=== PATIENT | male | born 1945 | race Caucasian/White ===

== ENCOUNTER 2019-11-06 01:03 | Outpatient (CLI) | payer OTHER, SELFPAY ==
[2019-11-06 19:35] LABS: SARS-CoV-2 RNA PCR Negative
== END 2019-11-06 01:04 | disposition home or self-care (01) ==
LOC: ANHCOVIDDT 01:03
PROVIDERS: PCP Internal Medicine; Visit Provider Internal Medicine Gastroenterology
DX: Z01.812 Encounter for preprocedural laboratory examination (principal); Z11.59 Encounter for screening for other viral diseases
CPT/HCPCS: 87635; C9803; U0003

== ENCOUNTER 2019-11-08 01:44 | Day surgery (SDC) | payer OTHER, SELFPAY ==
[2019-11-02 16:21] VITALS: BMI 26.0
[2019-11-08 08:52] VITALS: BP 145/88; PULSE 72; RESP 16; TEMP 36.1; O2SAT 97; BMI 25.0
[2019-11-08] MEDS: LACTATED RINGERS 1,000 ML 150 ML IV CONT (09:08)
--- NOTE | 2019-11-08 09:13 | PM.HPGS ---
History of Present Illness History of Present Illness Consent: Risks, benefits, and alternatives have been discussed and questions answered. Patient agrees to proceed with procedure. Chief complaint: hx of polyps Narrative: Sergei West is a 74 year old male [facility] Past Medical History Medical History (Updated 04/10/19 @ 09:40 by Obi Murrieta MD) Atrial fibrillation with controlled ventricular rate Benign essential HTN Chronic diastolic heart failure Coronary artery disease involving [place] coronary artery of [place] heart Dependent edema Diastolic dysfunction without heart failure THIBODEAUX (dyspnea on exertion) Dyslipidemia First degree atrioventricular block Heart valve disease History of bradycardia Mixed hyperlipidemia LIEN on CPAP Surgical History Surgical History H/O hernia repair Family History Family History (System 02/08/19 @ 13:05 by Rosa M Story) Father Family history of heart disease in male family member before age 55 Hypertension Mother Family history of alcoholism Family history of lung disease Social History Social History (System 02/08/19 @ 13:05 by Rosa M Story) Smoking status: Never smoker Alcohol intake: never Meds Home Medications and Allergies Home Medications Medication Instructions Recorded Confirmed Type azelastine 0.15 % (205.5 mcg) 2 spray NASAL BID #30 ml 02/09/19 11/02/19 Rx nasal spray cholecalciferol (vitamin D3) 125 5,000 unit PO DAILY 02/20/19 11/02/19 History mcg (5,000 unit) capsule finasteride 5 mg tablet 5 mg PO DAILY #90 tablet 06/01/19 11/02/19 Rx amlodipine 10 mg tablet 10 mg PO DAILY #30 tablet 06/26/19 11/02/19 Rx lisinopril 40 mg tablet 40 mg PO DAILY #30 tablet 07/12/19 11/02/19 Rx rivaroxaban 20 mg tablet See Rx Instructions .ROUTE 08/08/19 11/02/19 Rx .COMPLEX #90 tablet metoprolol succinate 25 mg 25 mg PO DAILY #90 tablet 10/15/19 11/02/19 Rx tablet,extended release 24 hr allopurinol 200 mg PO DAILY 11/02/19 11/02/19 History simvastatin 20 mg tablet See Rx Instructions .ROUTE 11/05/19 11/08/19 Rx .COMPLEX #90 tablet Allergies Allergy/AdvReac Type Severity Reaction Status Date / Time No Known Allergies Allergy Mild Verified 11/08/19 08:51 Vital Signs Vital Signs - 24 hr 11/08/19 08:52 Temperature 36.1 C L Pulse Rate 72 Respiratory Rate 16 Blood Pressure 145/88 H Pulse Oximetry 97 Exam Const: Orientation/consciousness: patient oriented x3 Resp: Auscultation: clear to auscultation bilaterally Cardio: Rate: regular rate Rhythm: regular rhythm Heart sounds: no murmurs GI: GI Palp: Yes Soft to palpation, No Tenderness to palpation present (GI), Yes No hepatosplenomegaly present and No Palpable mass present Auscultation: normal bowel sounds Neuro: General: patient oriented x3 and no focal motor deficits Extrem: General: no pedal edema Assessment and Plan Additional Plan screening colonoscopy secondary history of colonic polyps last colonoscopy 7 years ago
--- NOTE | 2019-11-08 09:41 | P.PNAN_ITS ---
Anes - Initial Pre Proc Eval Procedure: Operation Date: 11/08/19 09:30 Proposed Procedures p Screening Colonoscopy - West Blanco MD Date/Time: 11/08/19 09:41 Surgeon: West Blanco MD Pre Op Diagnosis: hx of polyps Patient Data Age: 74 Gender: M Height: 5 ft 9 in Weight: 76.8 kg Last Vital Signs Temp 96.9 F L 11/08/19 08:52 Pulse 72 11/08/19 08:52 Resp 16 11/08/19 08:52 BP 145/88 H 11/08/19 08:52 Pulse Ox 97 11/08/19 08:52 Allergies Allergy/AdvReac Type Severity Reaction Status Date / Time No Known Allergies Allergy Mild Verified 11/08/19 08:51 Home Medications Medication Instructions Recorded Confirmed Type azelastine 0.15 % (205.5 mcg) 2 spray NASAL BID #30 ml 02/09/19 11/02/19 Rx nasal spray cholecalciferol (vitamin D3) 125 5,000 unit PO DAILY 02/20/19 11/02/19 History mcg (5,000 unit) capsule finasteride 5 mg tablet 5 mg PO DAILY #90 tablet 06/01/19 11/02/19 Rx amlodipine 10 mg tablet 10 mg PO DAILY #30 tablet 06/26/19 11/02/19 Rx lisinopril 40 mg tablet 40 mg PO DAILY #30 tablet 07/12/19 11/02/19 Rx rivaroxaban 20 mg tablet See Rx Instructions .ROUTE 08/08/19 11/02/19 Rx .COMPLEX #90 tablet metoprolol succinate 25 mg 25 mg PO DAILY #90 tablet 10/15/19 11/02/19 Rx tablet,extended release 24 hr allopurinol 200 mg PO DAILY 11/02/19 11/02/19 History simvastatin 20 mg tablet See Rx Instructions .ROUTE 11/05/19 11/08/19 Rx .COMPLEX #90 tablet Patient hx anesthesia problems: none Family hx anesthesia problems: none PMFSH Past Medical History Medical History (Updated 04/10/19 @ 09:40 by Obi Murrieta MD) Atrial fibrillation with controlled ventricular rate Benign essential HTN Chronic diastolic heart failure Coronary artery disease involving [place] coronary artery of [place] heart Dependent edema Diastolic dysfunction without heart failure THIBODEAUX (dyspnea on exertion) Dyslipidemia First degree atrioventricular block Heart valve disease History of bradycardia Mixed hyperlipidemia LIEN on CPAP Surgical History Surgical History H/O hernia repair Family History Family History (System 02/08/19 @ 13:05 by Rosa M Story) Father Family history of heart disease in male family member before age 55 Hypertension Mother Family history of alcoholism Family history of lung disease Social History Social History (System 02/08/19 @ 13:05 by Rosa M Story) Smoking status: Never smoker Alcohol intake: never Anes - Eval Final PreProcedure Day of Procedure 11/08/19 09:41 Patient weight: normal Heart: regular rate and rhythm Lungs: clear to auscultation Airway: Mallampati scale class II Neurological: alert and oriented Last oral intake: >/= 8 hours ASA classification: III Emergent: no Anesthetic plan: proceed Anesthesia type and monitoring: general GIVS and standard monitoring Informed Consent: The patient's anesthetic plan and its attendant risks and benefits were discussed with the patient/family/POA. Questions were solicited and answers provided to the satisfaction of the patient/family/POA.
[2019-11-08] MEDS: SIMETHICONE ORAL SUSPENSION 20 MG/0.3 ML 30 ML BOTTLE 0.6 ML IRRIGATION (10:09)
[2019-11-08 10:16] VITALS: BP 107/72; PULSE 86; RESP 16; O2SAT 95
== END 2019-11-08 10:54 | disposition home or self-care (01) ==
PROVIDERS: PCP Internal Medicine; Visit Provider Internal Medicine Gastroenterology
PROC: 0DJD8ZZ Inspection of Lower Intestinal Tract, Via Natural or Artificial Opening Endoscopic (ICD-10-PCS; CPT 45378; principal; 2019-11-08 09:30)
DX: Z12.11 Encounter for screening for malignant neoplasm of colon (principal); K57.30 Diverticulosis of large intestine without perforation or abscess without bleeding; K64.1 Second degree hemorrhoids; Z86.010 Personal history of colon polyps; I48.91 Unspecified atrial fibrillation; I11.0 Hypertensive heart disease with heart failure; I50.32 Chronic diastolic (congestive) heart failure; I25.10 Atherosclerotic heart disease of native coronary artery without angina pectoris; I44.0 Atrioventricular block, first degree; E78.2 Mixed hyperlipidemia; G47.33 Obstructive sleep apnea (adult) (pediatric); Z79.01 Long term (current) use of anticoagulants
CPT/HCPCS: G0105; J2704; J7120

== ENCOUNTER 2021-05-02 02:07 | Emergency (ER) | payer OTHER, SELFPAY ==
--- NOTE | ~2021-05-02 | XR_ITS ---
EXAMINATION: XR femur RT min 2V DATE: 05/02/2021 08:03 INDICATION: Right thigh pain. TECHNIQUE: 2 views of right femur on 4 radiographs were obtained. COMPARISON: None. FINDINGS: Bone alignment is normal. No fracture. There is mild right knee and hip osteoarthritis. The re is a large knee joint effusion. Surgical clips overlie the pelvis. IMPRESSION: 1. Mild polyarticular osteoarthritis. 2. Large right knee joint effusion. Reviewed, dictated and finalized at location A. H CORRECTIONS OFFICER
--- NOTE | ~2021-05-02 | XR_ITS ---
EXAMINATION: XR knee RT min 4V DATE: 05/02/2021 08:03 INDICATION: Right knee pain. TECHNIQUE: 4 views of right knee were obtained. COMPARISON: None. FINDINGS: Bone alignment is normal. No fracture. There is mild tricompartmental osteoarthritis charac terized by tiny osteophytes. No joint space narrowing. There is a large knee joint effusion. IMPRESSION: 1. Mild right knee osteoarthritis. 2. Large right knee joint effusion. Reviewed, dictated and finalized at location A. ROBE STYLIST
--- NOTE | ~2021-05-02 | US_ITS ---
EXAMINATION: US venous doppler LE RT DATE: 05/02/2021 08:11 INDICATION: Right lower limb pain. TECHNIQUE: Grayscale ultrasound images without and with compression and Doppler ultrasound images of the right lower extremity veins were obtained. COMPARISON: None. FINDINGS: The visualized portions of right common femoral vein, profunda (deep) femoral vein, femoral vein, pop liteal vein, peroneal veins, posterior tibial veins, and greater saphenous vein outflow are patent. IMPRESSION: 1. No deep venous thrombosis. Reviewed, dictated and finalized at location A. GLASS TECHNICIAN
[2021-05-02 03:04] VITALS: BP 130/83; PULSE 66; RESP 18; TEMP 36.5; O2SAT 99
[2021-05-02 06:22] VITALS: BP 149/105; PULSE 88; RESP 17; O2SAT 97
--- NOTE | 2021-05-02 08:07 | ED.LOWEXIN ---
HPI - Extremity Injury (Lower) General Chief Complaint: Extremity Injury, Lower Stated Complaint: Right knee pain/swelling Time Seen by Provider: 05/02/21 07:05 Source: patient, RN notes reviewed and old records reviewed Mode of arrival: ambulatory Limitations: no limitations History of Present Illness HPI Narrative: This is a 75 year old male who presents for evaluation of right leg pain. He noticed pain to right thigh just above his right knee at at 830 last night. He noticed this pain when he attempted to get up from his chair. He reports he was unable to bear weight due to pain. He has not taken anything for pain. He denies any injury. He takes Xarelto for atrial fibrillation and gout. He denies numbness, tingling or weakness. Related Data Home Medications Medication Instructions Recorded Confirmed cholecalciferol (vitamin D3) 125 5,000 unit PO DAILY 02/20/19 04/16/21 mcg (5,000 unit) capsule Allergies Allergy/AdvReac Type Severity Reaction Status Date / Time No Known Allergies Allergy Mild Verified 05/02/21 03:07 Review of Systems Review of Systems: All systems reviewed & are unremarkable except as noted in HPI and below PMFSH Past Medical History Medical History (Updated 05/02/21 @ 09:09 by Karishma Shane MD) Atrial fibrillation with controlled ventricular rate Benign essential HTN Chronic diastolic heart failure Coronary artery disease involving [place] coronary artery of [place] heart Dependent edema Diastolic dysfunction without heart failure THIBODEAUX (dyspnea on exertion) Dyslipidemia First degree atrioventricular block Heart valve disease History of bradycardia Mixed hyperlipidemia LIEN on CPAP Surgical History Surgical History H/O hernia repair Family History Family History Father Family history of heart disease in male family member before age 55 Hypertension Mother Family history of alcoholism Family history of lung disease Social History Social History Smoking status: Never smoker Alcohol intake: never Substance use: never Exam Const: General: no acute distress and alert Orientation/consciousness: patient oriented x3 HENMT: Head: normocephalic and atraumatic Eyes: EOM: EOMs intact bilaterally Resp: Effort & Inspection: normal respiratory effort Skin: General skin exam: normal color Rashes: no rashes Neuro: General: patient oriented x3, moves all extremities and CN's II-XI intact bilaterally Extrem: Other: no significant swelling or right leg, there is no redness or increased warmth to joint. He is unable to flex at knee due to pain Psych: Mental Status: mental status grossly normal Affect: normal affect Course Reevaluation(s) Reevaluation #1: I Discussed with patient that xray shows knee effusion. I looked at knee with US and I do not appreciated effusion amendable to arthrocentesis. There is appears to be debris may clots. I discussed with patient discharge plan of ICE , rest immobilization and pain medication. If symptoms do not improve he can follow up with his orthopedic surgeon Dr. Salvador. Date: 05/02/21 Time: 09:02 Vital Signs Vital signs: Vital Signs Temperature 97.7 F 05/02/21 03:04 Pulse Rate 66 05/02/21 03:04 Respiratory Rate 18 05/02/21 03:04 Blood Pressure 130/83 05/02/21 03:04 Pulse Oximetry 99 05/02/21 03:04 Temperature 97.7 F 05/02/21 03:04 Pulse Rate 88 05/02/21 06:22 Respiratory Rate 17 05/02/21 06:22 Blood Pressure 149/105 H 05/02/21 06:22 Pulse Oximetry 97 05/02/21 06:22 MDM - Extremity Injury (Lower) Imaging Data Radiologist's impression: ITS Impressions Knee X-Ray 05/02/21 08:03 IMPRESSION: 1. Mild right knee osteoarthritis. 2. Large right knee joint effusion. Femur X-Ray 05/02/21 08:04
[2021-05-02] MEDS: ACETAMINOPHEN 500 MG TABLET 1000 MG PO (08:14)
[2021-05-02] MEDS: BACLOFEN 5 MG TABLET PO (08:37)
== END 2021-05-02 09:47 | disposition home or self-care (01) ==
PROVIDERS: Emergency Provider General Practice; PCP Internal Medicine
DX: M25.461 Effusion, right knee (principal); M17.11 Unilateral primary osteoarthritis, right knee; I48.91 Unspecified atrial fibrillation; Z79.01 Long term (current) use of anticoagulants; I11.0 Hypertensive heart disease with heart failure; I50.32 Chronic diastolic (congestive) heart failure; I25.10 Atherosclerotic heart disease of native coronary artery without angina pectoris; E78.2 Mixed hyperlipidemia; G47.33 Obstructive sleep apnea (adult) (pediatric)
CPT/HCPCS: 73552; 73564; 93971; 99284; A9270

== ENCOUNTER 2022-09-27 08:23 | Outpatient (CLI) | payer OTHER, SELFPAY ==
--- NOTE | ~2022-09-27 | XR_ITS ---
Left Knee Technique: AP, lateral, and sunrise views were obtained. Clinical History: Osteoarthritis Findings: No fracture or dislocation is seen. Mild tricompartmental degenerative change noted. Soft t issues are unremarkable. No joint effusion is seen. Impression: Mild tricompartmental degenerative change. Reviewed, dictated and finalized at location . Impression: Mild tricompartmental degenerative change.
== END 2022-09-27 08:24 | disposition home or self-care (01) ==
PROVIDERS: PCP Family Medicine; Visit Provider Physician Assistant
DX: M17.12 Unilateral primary osteoarthritis, left knee (principal)
CPT/HCPCS: 73562

== ENCOUNTER 2024-07-23 14:32 | Outpatient (CLI) | payer OTHER, SELFPAY ==
[2024-07-23 15:28] LABS: Influenza A QL RT-PCR Negative (Negative); Influenza B QL RT-PCR Negative (Negative); SARS-CoV-2 RNA PCR Negative (Negative)
--- OUTSIDE RECORDS SUMMARY | 2024-07-23 16:29 | XMS_ITS | Encounter Summary ---
Author Organization [facility] Address [address] [place] [address] Care Team Providers Care Frame Welder Cargo Utility Trailers Name Role Phone Oib Murrieta MD Primary Care Provider Yessenia Peacock MD Primary Care Provider + Encounter Details Date Type Department Care Team (Late st Contact Info) Description 07/24/2021 Lab Requisition [facility] Care Pathology Lab [address] [place] [address] Jillian Lazcano MD [address] [place] [address] Illness, unspecified Social History Tobacco Use Types Packs/Day Years Used Date Smoking Tobacco: Never Assessed Sex and Gender Information Value Date Recorded Sex Assigned at Not on file Legal Sex Male 12:17 PM 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 Gender Identity Not on file Sexual Orientation Not on file documented as of this encounter Plan of Treatment Not on file documented as of this encounter Procedures Procedure Name Priority Date/Time Associated Diagnosis Comments PATH CONSULT ON REFERRED CASE Routine 07/24/2021 12:28 PM CDT Illness, unspecified documented in this encounter Results * PATH CONSULT ON REFERRED CASE (07/24/2021 12:28 PM CDT) Final Diagnosis PROSTATE, LLB, NEEDLE BIOPSY (OSC: [id number], A; 07/21/2021): - Benign prostatic tissue PROSTATE, LLM, NEEDLE BIOPSY (OSC: [id number], B; 07/21/2021): - Benign prostatic tissue PROSTATE, LLA, NEEDLE BIOPSY (OSC: [id number], C; 07/21/2021): - Benign prostatic tissue PROSTATE, LB, NEEDLE BIOPSY (OSC: [id number], D; 07/21/2021): - Benign prostatic tissue PROSTATE, LM, NEEDLE BIOPSY (OSC: [id number], E; 07/21/2021): - Benign prostatic tissue PROSTATE, LA, NEEDLE BIOPSY (OSC: [id number], F; 07/21/2021): - Benign prostatic tissue PROSTATE, RB, NEEDLE BIOPSY (OSC: [id number], G; 07/21/2021): - Benign prostatic tissue PROSTATE, RM, NEEDLE BIOPSY (OSC: [id number], H; 07/21/2021): - Atypical small acinar proliferation PROSTATE, RA, NEEDLE BIOPSY (OSC: [id number], I; 07/21/2021): - Benign prostatic tissue PROSTATE, RLB, NEEDLE BIOPSY (OSC: [id number], J; 07/21/2021): - Benign prostatic tissue PROSTATE, RLM, NEEDLE BIOPSY (OSC: [id number], K; 07/21/2021): - Benign prostatic tissue PROSTATE, RLA, NEEDLE BIOPSY (OSC: [id number], L; 07/21/2021): - Benign prostatic tissue 07/24/2021 4:58 PM [facility] Microscopic Description and Comment Sections of the RM biopsy demonstrate focal small irregular glands of cells with enlarged nuclei and abundant eosinophilic foamy cytoplasm. Some of these glands contain mucin droplets. On PIN 4 immunostain, these glands are AMACR positive and show loss of basal cells with p63 and HMWK. 07/24/2021 4:58 PM CDT [facility] Clinical History PSA 3.5, PROSTATE VOLUME 85.9 07/24/2021 4:58 PM [facility] Materials Received Received are four prepared slides from [facility] labeled [id number] (A1-C1 and A-C PIN4). This is a 12-part prostate biopsy. All materials will be returned. 07/24/2021 4:58 PM CDT [facility] Disclaimer The performance characteristics of all immunohistochemical and indirect immunofluorescence stains (if any) cited in this report were determined by the Histopathology Laboratory of [facility]. Some of these tests were developed by our own laboratory and have not been cleared or approved by the US Food and Drug Administration. The FDA does not require this test to go through premarket FDA review. These tests are used for clinical purposes. They should not be regarded as investigational or for research. This laboratory is certified under the Clinical Laboratory Improvement Amendments (CLIA) as qualified to perform high complexity clinical laboratory testing. This case has been personally reviewed and interpreted by the attending (teaching) pathologist. 07/24/2021 4:58 PM CDT [facility] Case Report Surgical Pathology Report Case: [id number] Authorizing Provider: Jillian Lazcano MD Collected: 07/24/2021 12:28 PM Ordering Location: [facility] Received: 07/24/2021 12:28 PM Pathologist: Juanita Moy MD Specimen: Slide Consultation 07/24/2021 4:58 PM CDT [facility] Embedded Images 07/24/2021 4:58 PM CDT [facility] Pathology/Cytolo gy SURGICAL PATHOLOGY CONSULTATION AND REPORT ON REFERRED SLIDES PREPARED ELSEWHERE / Unknown 07/24/2021 12:28 PM CDT 07/24/2021 12:28 PM CDT Jillian Lazcano MD LAB - PATHOLOGY/CYTOLOGY ORDERAB LES Final Result Performing Organization Address City/State/[facility] [[email or web address]] Co de Phone Number [facility] [address] [phone] documented in this encounter Visit Diagnoses Diagnosis Illness, unspecified documented in this encounter Care Teams Frame Welder Cargo Utility Trailers Relationship Specialty Start Date End Date Obi Murrieta MD [address] [place] [id number] PCP - General 08/06/21 11/27/23 Yessenia Peacock MD [address] [place] [address] PCP - General Family Medicine 11/28/23 documented as of this encounter
--- OUTSIDE RECORDS SUMMARY | 2024-07-23 16:29 | XMS_ITS | Clinical Summary ---
Author Organization [facility] Main [place] Address [address] [place] [address] Care Team Providers Care Occupational Psychologist Name Role Phone Ian Hyatt MD Primary Care Provider Allergies No known active allergies Medications allopurinol (ZYLOPRIM) 100 mg tablet take 1 tablet by oral route every day 0 0 6 Active Additional Information Patient taking differently: 200 mg, Reported on 05/16/2024 lisinopril (PRINIVIL,ZESTR IL) 40 mg tablet take 1 tablet by oral route every day 0 0 6 Active finasteride (PROSCAR) 5 mg tablet take 1 tablet by oral route every day 0 0 6 Active tamsulosin (FLOMAX) 0.4 mg capsule,extende d release 24hr take 1 capsule by oral route every day 1/2 hour following the same meal each day 0 0 6 Active amLODIPine (NORVASC) 5 mg tablet take 1 tablet by oral route every day 0 0 6 Active Additional Information Patient taking differently: 10 mg, Reported on 05/16/2024 cholecalciferol (VITAMIN D3) 2,000 unit capsule take 1 by Oral route once 0 0 6 Active azelastine 0.15 % (205.5 mcg) spray,non-aeros ol as needed 8 Active Xarelto 20 mg tablet 0 Active metoprolol XL (TOPROL-XL) 25 mg extended release tablet daily 0 Active rosuvastatin (CRESTOR) 20 mg tablet Take 1 tablet (20 mg total) by mouth daily 1 Active Active Problems Problem Noted Date Diagnosed Date Moderate to severe mitral regurgitation 01/20/20 22 Other hyperlipidemia 11/17/2016 Overview (01/23/2021): Converted unresolved ICD9, potential mismatch. Ascending aortic aneurysm 11/05/2015 Stage 3 chronic kidney disease 06/04/2015 Essential (primary) hypertension 05/04/2015 Encounters Date Type Department Care Team Description 05/16/2024 9:30 AM HTML WEB DEVELOPER Office Visit [facility] Cardiology [address] [place] [address] Medical Office Building [address] [place] [address] Jl Edmondson MD Essential (primary) hypertension (Primary Dx); Aneurysm of ascending aorta without rupture from Last 3 Months Surgical History Surgery Date Site/Laterality Comments HERNIA REPAIR Hernia repair Medical History Medical History Date Comments Hypertension Hypertension Hx Other Medical BPH; Comments: [facility] 07/17/2015 - Hx Other Medical dyslipidemia; C omments: [facility] 07/17/2015 - Hx Other Medical gout; Comments: [facility] 07/17/2015 - Ascending aortic aneurysm CKD (chronic kidney disease) stage 3, GFR 30-59 ml/min ([facility]) Family History Medical History Relation Name Comments Heart attack Father Myocardial infa rction; Cause of : Myocardial infarction Heart disease Father Family history of cardiac disorder - (Added by TW Conv) Sudden Cardiac Father Hyperlipidemia Other Family histor y of Hyperlipidemia; Relation Name Status Comments Father Other Social History Tobacco Use Types Packs/Day Years Used Date Smoking Tobacco: Never Smokeless Tobacco: Never Tobacco Cessation:Counseling Given: Not Answered Alcohol Use Standard Drinks/Week Comments No 0 (1 standard drink = 0.6 oz pur e alcohol) Sex and Gender Information Value Date Recorded Sex Assigned at Not on file Legal Sex Male 3:58 AM HTML WEB DEVELOPER Gender Identity Not on file Sexual Orientation Not on file Obstetrics History Last Filed Vital Signs Vital Sign Reading Time Taken Comments Blood Pressure 126/72 05/16/2024 9:03 AM HTML WEB DEVELOPER Pulse 68 05/16/2024 9:03 AM HTML WEB DEVELOPER Temperature 36.4 C (97.6 F) 01/24/2020 10:17 AM CDT Respiratory Rate - - Oxygen Saturation 94% 05/16/2024 9:03 AM HTML WEB DEVELOPER Inhaled Oxygen Concentration - - Weight 96.6 kg (213 lb) 05/16/2024 9:03 AM HTML WEB DEVELOPER Height 175.3 cm (5' 9 ) 05/16/2024 9:03 AM HTML WEB DEVELOPER Body Mass Index 31.45 05/16/2024 9:03 AM HTML WEB DEVELOPER Plan of Treatment Health Maintenance Due Date Last Done Comments Depression Screening 1945 Fall Risk Assessment 1945 Hepatitis C Screening 1945 DTaP/Tdap/Td Vaccine (1 - Tdap) 1957 Hepatitis B Screening 1964 Well Visit 65+ 2011 Pneumococcal vaccine 65+ (2 of 2 - PPSV23) 05/30/2017 04/04/2017, 05/05/2015 Zoster Vaccine (2 of 2) 04/01/2018 02/04/2018, 10/19 Covid-19 Vaccine (6 - 2023-2 5 season) 2023 10/15/2021, 12/28/2020, 06/24/2020, Additional history exists Influenza Vaccine (Season Ended) 2024 12/01/2021, 12/06/2020, 12/19/2019, Additional history exists Insurance [facility] Member Subscriber Plan / Payer (Ef fective 2019-Present) Name:Sergei West Rupert Relation to Subscriber:Self Name:Sergei West Rupert Payer ID:[id number] (NAIC) Type:MEDICARE RISK OTHER Address: [place] [id number] Care Teams Occupational Psychologist Relationship Specialty Start Date End Date Ian Hyatt MD [address] [address] PCP - General Family Medicine 05/16/24
--- OUTSIDE RECORDS SUMMARY | 2024-07-23 16:29 | XMS_ITS | Referral Summary ---
Author Organization [facility] Main [place] Address [address] [place] [address] Care Team Providers Care Car Restorer Name Role Phone Ian Hyatt MD Primary Care Provider Encounters Date Type Department Care Team Description 05/16/2024 9:30 AM BRIM POUNCER Office Visit [facility] Cardiology [address] [place] [address] Medical Office Building [address] [place] [address] Jl Edmondson MD Essential (primary) hypertension (Primary Dx); Aneurysm of ascending aorta without rupture from Last 3 Months Allergies No known active allergies Medications allopurinol [...] kidney disease 06/04/2015 Essential (primary) hypertension 05/04/2015 Social History Tobacco Use Types Packs/Day Years Used Date Smoking Tobacco: Never Smokeless Tobacco: Never Tobacco Cessation:Counseling Given: Not Answered Alcohol Use Standard Drinks/Week Comments No 0 (1 standard drink = 0.6 oz pur e alcohol) Sex and Gender Information Value Date Recorded Sex Assigned at Not on file Legal Sex Male 3:58 AM BRIM POUNCER Gender Identity Not on file Sexual Orientation Not on file Last Filed Vital Signs Vital Sign Reading Time Taken Comments Blood Pressure 126/72 05/16/2024 9:03 AM BRIM POUNCER Pulse 68 05/16/2024 9:03 AM BRIM POUNCER Temperature 36.4 C (97.6 F) 01/24/2020 10:17 AM CDT Respiratory Rate - - Oxygen Saturation 94% 05/16/2024 9:03 AM BRIM POUNCER Inhaled Oxygen Concentration - - Weight 96.6 kg (213 lb) 05/16/2024 9:03 AM BRIM POUNCER Height 175.3 cm (5' 9 ) 05/16/2024 9:03 AM BRIM POUNCER Body Mass Index 31.45 05/16/2024 9:03 AM BRIM POUNCER Plan of Treatment Not on file Insurance [facility] Care Teams Car Restorer Relationship Specialty Start Date End Date Ian Hyatt MD [address] [facility] [address] [place] [address] PCP - General Family Medicine 05/16/24
--- OUTSIDE RECORDS SUMMARY | 2024-07-23 16:29 | XMS_ITS | Clinical Summary ---
Author Organization [facility] Address [address] [place] [id number] Care Team Providers Care Extruding Press Operator Name Role Phone Opal Chase MD Primary Care Provider Social History Tobacco Use Types Packs/Day Years Used Date Smoking Tobacco: Never Assessed Sex and Gender Information Value Date Recorded Sex Assigned at Not on file Legal Sex Male 7:07 PM CDT Gender Identity Not on file Sexual Orientation Not on file Plan of Treatment Health Maintenance Due Date Last Done Comments Hepatitis C 1963 DTaP, Tdap and Td Vaccines ( 1 - Tdap) 1965 Zoster Vaccines (2 of 3) 04/01/2018 018, 11/08/2011 Pneumococcal Vaccine: 50+ Years (2 of 2 - PPSV23) 04/26/2019 04/26/2018, 04/04/2017 RSV Immunization or 60+ Years (1 - 1-dose 75+ series) 2021 COVID-19 Vaccine (4 - 2023-2 5 season) 2023 12/28/2020, 06/07/2020, 05/15/2020 Meningococcal B Vaccine Aged Out No l onger eligible based on patient's age to complete this topic Meningococcal Vaccine Aged Out No chloe kenzie eligible based on patient's age to complete this topic RSV Immunizations Under 20 Months Aged Out No longer eligible b ased on patient's age to complete this topic Care Teams Extruding Press Operator Relationship Specialty [place] [address] [place] [address] PCP - General 08/03/16
--- OUTSIDE RECORDS SUMMARY | 2024-07-23 16:29 | XMS_ITS | Clinical Summary ---
Author Organization [facility] Address [address] [place] [id number] Phone Care Team Providers Care Laboratory Technician Name Role Phone Mike George DO Primary Care Provider [phone] Allergies No known active allergies Medications finasteride (PROSCAR) 5 MG tablet 1 tab/cap qday 05/05/2015 Active atenolol (TENORMIN) 25 MG tablet 1 tab/cap qday 05/04/2015 Active allopurinol (ZYLOPRIM) 100 MG tablet 1 tab/cap qday 05/04/2015 Active lisinopril (PRINIVIL,ZESTRI L) 40 MG tablet 1 tab/cap qday 05/04/2015 Active simvastatin (ZOCOR) 20 MG tablet 1 tab/cap qday 05/05/2015 Active rivaroxaban (XARELTO) 20 MG tablet 1 qday 0 05/17/2018 Active cholecalciferol (VITAMIN D-3) 2000 units capsule take 1 by Oral route once 07/17/2015 Active Azelastine HCl 0.15 % solution 08/31/2017 Act minesh amLODIPine (NORVASC) 10 MG tablet 03/29/2019 Active metoprolol succinate XL (TOPROL-XL) 25 MG 24 hr tablet 04/13/2019 Act minesh rosuvastatin (CRESTOR) 20 MG tablet 05/09/2020 Active Active Problems Problem Noted Date Diagnosed Date Chronic kidney disease, stage 2 (mild) 7 Other hyperlipidemia 11/17/2016 Overview (06/17/2018): Converted unresolved ICD9, potential mismatch. Hypo-osmolality and hyponatremia 10/08/2015 Hypertensive chronic kidney disease with stage 1 through stage 4 chronic kidney disease, or unspecified chronic kidney disease 06/04/2015 Chronic kidney disease, stage 3 (moderate) 06/03 Other specified abnormal finding of blood chemis try 05/04/2015 Essential (primary) hypertension 05/04/2015 Idiopathic gout 05/04/2015 Primary generalized osteoarthritis 05/04/2015 Immunizations Immunization Administration Dates Next Due Fluzone High-Dose 12/19/2019 Influenza TIV (IM) 03/10/2016,05/05/2015 Influenza, Injectable, Quadrivalent 01/02/2019 Pneumococcal Conjugate 13-Valent 05/05/2015 Sars-cov-2, Unspecified 06/24/2020 Family History Medical History Relation Comments Hypertensive disorder Father Kidney disease Neg Hx Kidney stone Neg Hx Relation Status Comments Father Social History Tobacco Use Types Packs/Day Years Used Date Smoking Tobacco: Never Smokeless Tobacco: Never Alcohol Use Standard Drinks/Week Comments No 0 (1 standard drink = 0.6 oz pur e alcohol) Sex and Gender Information Value Date Recorded Sex Assigned at Not on file Legal Sex Male 7:53 AM [facility] Gender Identity Not on file Sexual Orientation Not on file Last Filed Vital Signs Vital Sign Reading Time Taken Comments Blood Pressure 136/72 11/25/2021 9:07 AM CDT Pulse - - Temperature 35.7 C (96.2 F) 11/25/2021 9:07 AM CDT Respiratory Rate 18 11/25/2021 9:07 AM CDT Oxygen Saturation - - Inhaled Oxygen Concentration - - Weight 89.4 kg (197 lb) 11/25/2021 9:07 AM CDT Height 172.7 cm (5' 8 ) 11/25/2021 9:07 AM CDT Body Mass Index 29.95 11/25/2021 9:07 AM CDT Plan of Treatment Health Maintenance Due Date Last Done Comments Pneumococcal PPSV23/PCV13 65 + Years / Low and Medium Risk (2 of 3 - PPSV23) 05/05/2016 05/05/2015 Influenza Vaccine (Season Ended) 2024 03/10/20 16, 05/05/2015 Insurance Care Teams Laboratory Technician Relationship Specialty Start Date End Date Mike George DO [address] [place] [address] PCP - General Internal Medicine 11/25/21
--- OUTSIDE RECORDS SUMMARY | 2024-07-23 16:29 | XMS_ITS | Clinical Summary ---
Author Organization [facility] Address [address] [facility] [place] [address] Care Team Providers Care Utilization Supervisor Name Role Phone Yessenia Peacock MD Primary Care Provider + Source Comments [facility],non-owned Affiliates and Associated Physician Practices is amultiple site organization consisting of ambulatory clinics and hospital sitesin [place], [place], [place] and [place]. This disclosure is being madepursuant to the Care Everywhere program and may not contain all information available regarding this patient. Last updated 17.[facility] Allergies No known active allergies Medications * Be aware that medications may not be up to date on this document. Alwaysverify current medications with the patient. rosuvastatin (CRESTOR) 20 MG tablet Take 20 mg by mouth once daily 05/09/2020 Active azelastine (ASTEPRO) 205.5 MCG/SPRAY nasal spray [place] 2 sprays into each nostril 2 times daily Active vitamin D3 (CHOLECALCIFERO L) 125 MCG (5000 UT) capsule Take 5,000 Units by mouth once daily Active finasteride (PROSCAR) 5 MG tablet Take 5 mg by mouth once daily Active amLODIPine-ator vastatin (CADUET) 10-10 MG tablet Take 1 tablet by mouth once daily Active lisinopril (PRINIVIL; ZESTRIL) 40 MG tablet Take 40 mg by mouth once daily Active allopurinol (ZYLOPRIM) 100 MG tablet Take 2 tablets by mouth once daily Active metoprolol succinate XL 24hr (Toprol XL) 25 MG tablet 09/28/2021 Active Xarelto 20 MG tablet 12/14/2021 Active Active Problems Problem Noted Date Diagnosed Date S/P eye surgery 01/22/2022 Moderate to severe mitral regurgitation 01/20/20 22 Other hyperlipidemia 11/17/2016 Overview (12/18/2021): Converted unresolved ICD9, potential mismatch. Converted unresolved ICD9, potential mismatch. Ascending aortic aneurysm 11/05/2015 Hypo-osmolality and hyponatremia 10/08/2015 Stage 3 chronic kidney disease 06/04/2015 Essential (primary) hypertension 05/04/2015 Idiopathic gout 05/04/2015 Idiopathic osteoarthritis 05/04/2015 Family History Medical History Relation Name Comments CAD (Coronary Artery Disease) Father Relation Name Status Comments Father Social History Tobacco Use Types Packs/Day Years Used Date Smoking Tobacco: Never Smokeless Tobacco: Never Tobacco Cessation:Counseling Given: Not Answered Alcohol Use Standard Drinks/Week Comments Never 0 (1 standard drink = 0.6 oz pur e alcohol) Sex and Gender Information Value Date Recorded Sex Assigned at Not on file 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 Gender Identity Not on file Sexual Orientation Not on file Last Filed Vital Signs Vital Sign Reading Time Taken Comments Blood Pressure 130/82 02/04/2022 11:03 AM CDT Pulse 69 02/04/2022 11:03 AM CDT Temperature 36.4 C (97.6 F) 02/04/2022 10:53 AM CDT Respiratory Rate 16 02/04/2022 10:58 AM CDT Oxygen Saturation 98% 02/04/2022 11:03 AM CDT Inhaled Oxygen Concentration - - Weight 89.4 kg (197 lb) 02/04/2022 8:28 AM CDT Height 175.3 cm (5' 9 ) 02/04/2022 8:28 AM CDT Body Mass Index 29.09 02/04/2022 8:28 AM CDT Plan of Treatment Health Maintenance Due Date Last Done Comments MEDICARE AWV 12 MONTHS 1945 HEPATITIS C SCREENING 04/28/1963 DTAP/TDAP/TD VACCINES (1 - Tdap) 1965 PNEUMOCOCCAL VACCINE 50+ (1 of 1 - PCV) 1996 ZOSTER VACCINE (1 of 2) 1996 Respiratory Syncytial Virus (RSV) Vaccine Pt: or over 60 yrs (1 - 1-dose 75+ series) 2021 COVID-19 VACCINE (1 - 2023-2 5 season) 2023 DEPRESSION SCREENING 04/04/2024 INFLUENZA VACCINE (Season Ended) 2024 01/02/2019, 03/10/2016, 05/05/2015 HEPATITIS B VACCINE Aged Out No longe r eligible based on patient's age to complete this topic HIB VACCINE Aged Out No longer eligi ble based on patient's age to complete this topic HPV VACCINE Aged Out No longer eligi ble based on patient's age to complete this topic MENINGOCOCCAL (Group B) VACCINE SHARED DECISION-MAKING Aged Out No longer eligible based on patient's age to complete this topic MENINGOCOCCAL GROUPS A/C/Y/W VACCINE Aged Out No longer eligible b ased on patient's age to complete this topic Medical Devices Implanted Type Area Balling Machine Operator Device Identifier Shelf Expiration Date Model / Serial / Lot Lens Iol 0 D +18 Dina Mod L Bcnvx Acrsf - [id number] Implanted:Qty: 1 on 01/21/2022 by Javier Chavez MD at [facility] Left: [employer] 10/06/2026 [id number] / [id number] / Lens Iol 0 D +17.5 Dina Mod L Acrsf Iq - [id number] Implanted:Qty: 1 on 02/04/2022 by Javier Chavez MD at [facility] Right: [employer] 09/23/2023 [id number] / [id number] / Ring Tnsn Morcher Pmma 24-28mm Cpsl Ty - [id number] Implanted:Qty: 1 on 02/04/2022 by Javier Chavez MD at [facility] Right: Eye [facility] 07/01/2026 MR-[facility] / [id number] / Insurance Care Teams Utilization Supervisor Relationship Specialty Start Date End Date Yessenia Peacock MD [address] [place] [address] PCP - General Family Medicine 11/28/23
== END 2024-07-23 14:33 | disposition home or self-care (01) ==
LOC: ANHLAB 14:34
PROVIDERS: PCP Family Medicine; Visit Provider Physician Assistant Medical
DX: R50.9 Fever, unspecified (principal); Z20.822 Contact with and (suspected) exposure to COVID-19
CPT/HCPCS: 87636